=== PATIENT | female | born 1960 | race Caucasian/White ===

== ENCOUNTER → 2018-04-30 | Outpatient (CLI) | payer OTHER ==
[~2018-04-30] MED LIST: ACE500 PO; IMITREX; LEVO100T95 PO
--- NOTE | 2018-05-04 09:05 | RADIOLOGY IMAGING REPORT ---
FACILITY: [facility] PATIENT NAME: CLINT COLEMAN : [id number] MR: [id number] V: [id number] EXAM DATE: [id number] ORDERING PHYSICIAN: ADEN MARTÍNEZ TECHNOLOGIST: Yarely Mansfield PROCEDURE:BILATERAL DIGITAL SCREENING MAMMOGRAM WITH CAD ASSISTED INTERPRETATION & 3D TOMOSYNTHESIS COMPARISON:Prior mammograms dated 04/07/17, 04/11/15, 08/23/13, 06/19/11 INDICATIONS:SCREENING FINDINGS: There are bilateral subpectal breast implants in place. There is no evidence of implant rupture or leakage. Small to moderate amount of fibroglandular tissue is seen anterior to the implants. The parenchymal pattern has remained stable allowing for difference in mammographic technique & patient positioning. There is no evidence of malignant appearing mass, malignant appearing calcification or other secondary sign of malignancy in either breast. DIAGNOSTIC CATEGORY 2--BENIGN FINDING. RECOMMENDATIONS: ROUTINE MAMMOGRAM AND CLINICAL EVALUATION. IMPRESSION: BIRADS 2: Benign finding No significant abnormality is seen. Dictated by: Yamileth Hallman M.D. on 04/30/2018 at 15:07 Transcribed by: TIFFANIE on 05/03/2018 at 8:05 Approved by: Yamileth Hallman M.D. on 05/04/2018 at 9:04 [facility]
== END ==
LOC: MAMO 01:04
PROVIDERS: ATTEND Family Medicine
DX: Z12.31 Encounter for screening mammogram for malignant neoplasm of breast (principal); Z98.82 Breast implant status
CPT/HCPCS: 77063; 77067